=== PATIENT | male | born 1955 | race Hispanic/Latino ===

== ENCOUNTER 2019-01-09 16:52 | Emergency (ER) | payer OTHER ==
--- NOTE | 2019-01-09 18:07 | Emergency Department Report ---
Blank Doc - Documentation Documentation: 63 y o male presents to ed cc of bilateral swollen feet and pain x a while now pt keeps rambling off states he has clarita on the back of his head ACC evaluate
--- NOTE | 2019-01-09 19:55 | Emergency Department Report ---
ED Lower Extremity HPI - General Chief Complaint: Extremity Injury, Lower Stated Complaint: FEET PAIN Time Seen by Provider: 01/09/19 18:03 Source: patient, EMS Mode of arrival: Ambulatory Limitations: No Limitations - History of Present Illness Initial Comments: This is a 63-year-old male who presents with bilateral feet pain and redness for 1-2 weeks. Patient states he is homeless and walking and increased pain. Patient reports left foot is worse than right. He is also requesting clarita removed from occipital scalp. Patient states clarita possibly were placed one week ago he is unsure of date. Complaint: foot injury (bilateral) Onset/Timin -: week(s) Injury: Foot: Right, Left Type of Injury: unknown Place: street/outdoors Severity: moderate Severity scale (0 -10): 5 Improves With: nothing Worsens With: weight bearing Associated Symptoms: ambulatory. denies: snap/pop sensation, swelling, numbness, tingling - Related Data Previous Rx's Medication Instructions Recorded Last Taken Type Sulfamethoxazole/Trimethoprim 1 each PO BID #20 tablet 01/09/19 Unknown Rx [Bactrim DS TAB] cephALEXin [Keflex] 500 mg PO Q6HR #28 capsule 01/09/19 Unknown Rx ED Review of Systems ROS: Stated complaint: FEET PAIN Other details as noted in HPI Constitutional: denies: chills, fever Respiratory: denies: cough, shortness of breath, wheezing Cardiovascular: denies: chest pain, palpitations Gastrointestinal: denies: abdominal pain, nausea, diarrhea Skin: rash (feet redness and pain), other (clarita to occipital scalp). denies: lesions Neurological: denies: headache, weakness, paresthesias Psychiatric: denies: anxiety, depression ED Past Medical Hx - Past Medical History Previous Medical History?: No - Surgical History Past Surgical History?: Yes Hx Appendectomy: Yes Additional Surgical History: tendon reconstruction - Social History Smoking Status: Never Smoker Substance Use Type: None - Medications Home Medications: Home Medications Medication Instructions Recorded Confirmed Last Taken Type Sulfamethoxazole/Trimethoprim 1 each PO BID #20 tablet 01/09/19 Unknown Rx [Bactrim DS TAB] cephALEXin [Keflex] 500 mg PO Q6HR #28 capsule 01/09/19 Unknown Rx ED Physical Exam - General Limitations: No Limitations General appearance: alert, in no apparent distress - Respiratory Respiratory exam: Present: normal lung sounds bilaterally. Absent: respiratory distress - Cardiovascular Cardiovascular Exam: Present: regular rate, normal rhythm. Absent: systolic murmur, diastolic murmur, rubs, gallop - GI/Abdominal GI/Abdominal exam: Present: soft, normal bowel sounds - Extremities Exam Extremities exam: Present: full ROM, normal capillary refill, pedal edema. Absent: tenderness, joint swelling, calf tenderness - Neurological Exam Neurological exam: Present: alert, oriented X3, normal gait - Psychiatric Psychiatric exam: Present: normal affect, normal mood - Skin Skin exam: Present: warm, dry, intact, normal color, other (macular erythematous area to both feet, tenderness, warmth, mild swelling on left, <2 capillary refills bilaterally, 3 clarita to occipital of scalp, scabbed over partial staple. No surrounding cellulitis or swelling.). Absent: rash ED Course Vital Signs 01/09/19 18:02 Temperature 98.0 F Pulse Rate 71 Respiratory 18 Rate Blood Pressure 153/66 O2 Sat by Pulse 98 Oximetry ED Lower Extremity MDM - Lab Data Result diagrams: 01/09/19 20:06 Lab Results 01/09/19 Range/Units 20:06 WBC 4.9 (4.5-11.0) K/mm3 RBC 3.66 (3.65-5.03) M/mm3 Hgb 11.1 L (11.8-15.2) gm/dl Hct 33.1 L (35.5-45.6) % MCV 90 (84-94) fl MCH 30 (28-32) pg MCHC 34 (32-34) % RDW 12.4 L (13.2-15.2) % Plt Count 220 (140-440) K/mm3 Add Manual Diff Complete Total Counted 100 Seg Neuts % (Manual) 69.0 (40.0-70.0) % Band Neutrophils % 0 % Lymphocytes % (Manual) 22.0 (13.4-35.0) % Reactive Lymphs % (Man) 0 % Monocytes % (Manual) 7.0 (0.0-7.3) % Eosinophils % (Manual) 1.0 (0.0-4.3) % Basophils % (Manual) 1.0 (0.0-1.8) % Metamyelocytes % 0 % Myelocytes % 0 % Promyelocytes % 0 % Blast Cells % 0 % Nucleated RBC % Not Reportable Seg Neutrophils # Man 3.4 (1.8-7.7) K/mm3 Band Neutrophils # 0.0 K/mm3 Lymphocytes # (Manual) 1.1 L (1.2-5.4) K/mm3 Abs React Lymphs (Man) 0.0 K/mm3 Monocytes # (Manual) 0.3 (0.0-0.8) K/mm3 Eosinophils # (Manual) 0.0 (0.0-0.4) K/mm3 Basophils # (Manual) 0.0 (0.0-0.1) K/mm3 Metamyelocytes # 0.0 K/mm3 Myelocytes # 0.0 K/mm3 Promyelocytes # 0.0 K/mm3 Blast Cells # 0.0 K/mm3 WBC Morphology Not Reportable Hypersegmented Neuts Not Reportable Hyposegmented Neuts Not Reportable Hypogranular Neuts Not Reportable Smudge Cells Not Reportable Toxic Granulation Not Reportable Toxic Vacuolation Not Reportable Dohle Bodies Not Reportable Pelger-Huet Anomaly Not Reportable Stacy Rods Not Reportable Platelet Estimate Appears normal Clumped Platelets Not Reportable Plt Clumps, EDTA Not Reportable Large Platelets Not Reportable Giant Platelets Not Reportable Platelet Satelliting Not Reportable Plt Morphology Comment Not Reportable RBC Morphology Not Reportable Dimorphic RBCs Not Reportable Polychromasia Not Reportable Hypochromasia Not Reportable Poikilocytosis Not Reportable Anisocytosis Not Reportable Microcytosis Not Reportable Macrocytosis Not Reportable Spherocytes Not Reportable Pappenheimer Bodies Not Reportable Sickle Cells Not Reportable Target Cells Not Reportable Tear Drop Cells Not Reportable Ovalocytes Few Helmet Cells Not Reportable [place] Bodies Not Reportable Rudolph Rings Not Reportable Kimper Cells Not Reportable Bite Cells Not Reportable Crenated Cell Not Reportable Elliptocytes Not Reportable Acanthocytes (Spur) Not Reportable Rouleaux Not Reportable Hemoglobin C Crystals Not Reportable Schistocytes Not Reportable Malaria parasites Not Reportable [place]ño Bodies Not Reportable Hem Pathologist Commnt No - Medical Decision Making Patient was examined by me. Vitals are normal and patient is in no acute distress. Obtained a CBC not remarkable. There is suspicion of a cellulitis to both feet. Cellulitis, start Cipro and Keflex. The 3 clarita removed from occipital scalp with a staple remover. Cleaned with normal saline. Given Rocephin 500 mg IM prior to discharge. Patient informed of results. Plan discussed with patient to discharge home and treat outpatient. He agrees with ER plan. Patient discharged home in stable condition. Follow up with PCP in 2-3 days. Critical care attestation.: If time is entered above; I have spent that time in minutes in the direct care of this critically ill patient, excluding procedure time. ED Disposition Clinical Impression: Cellulitis of both feet, Removal of clarita Disposition: TO HOME OR SELFCARE Is pt being admited?: No Does the pt Need Aspirin: No Condition: Stable Instructions: Cellulitis (ED), Acute Wound Care (ED) Additional Instructions: Course of antibiotics as prescribed. Avoid drinking alcohol while taking antibiotics and for up to 24 hours of completion. Follow-up with primary care provider. Return to the emergency room if redness increases in size, drainage, numbness or tingling, or swelling. Prescriptions: Sulfamethoxazole/Trimethoprim [Bactrim DS TAB] 1 each PO BID #20 tablet cephALEXin [Keflex] 500 mg PO Q6HR #28 capsule Referrals: [facility] [Outside] - 3-5 Days [facility] [Outside] - 3-5 Days [facility] [Outside] - 3-5 Days DARYA JOSÉ MD [Staff Physician] - 3-5 Days Time of Disposition: 22:00
[2019-01-09 20:44] LABS: Hematocrit 33.1 % (35.5-45.6); Hemoglobin 11.1 gm/dl (11.8-15.2); Mean Corpuscular HGB Conc 34 % (32-34); Mean Corpuscular Volume 90 fl (84-94); Platelet Count 220 K/mm3 (140-440); Red Blood Count 3.66 M/mm3 (3.65-5.03); Red Cell Distribution Width 12.4 % (13.2-15.2)
[2019-01-09 21:37] LABS: Total Cells Counted 100
[2019-01-09 21:38] LABS: Ovalocytes Few
[2019-01-09] MEDS ORDERED: XYLOCAINE 1% MPF 5 mL INFILTRATI ONE (22:33)
[2019-01-09] MEDS ORDERED: ROCEPHIN IM ONE (22:33)
[2019-01-09] MEDS ORDERED: KEFLEX PO ONE (22:43)
[2019-01-09] MEDS ORDERED: BACTRIM DS PO ONE (22:43)
[2019-01-09 23:33] VITALS: BP 140/70
== END 2019-01-09 23:05 | disposition home or self-care (01) ==
LOC: ED 16:52
DX: L03.115 Cellulitis of right lower limb (principal); L03.116 Cellulitis of left lower limb; Z90.89 Acquired absence of other organs
CPT/HCPCS: 36415; 85007; 85025; J0696